=== PATIENT | female | born 1975 | race Caucasian/White ===

== ENCOUNTER 2017-05-01 14:37 | Outpatient (CLI) | payer OTHER ==
--- NOTE | 2017-05-01 17:01 | MRI Report ---
EXAM: LEFT ANKLE/HINDFOOT MRI WITHOUT CONTRAST EXAM DATE: 05/01/2017 03:50 PM. CLINICAL HISTORY: Worsening medial left ankle pain for 2 months after physical therapy. COMPARISON: None. TECHNIQUE: Multiplanar, multisequence T1-weighted and fluid-sensitive sequences of the ankle/hindfoot without contrast. Other: None. FINDINGS: Bones and Articular Cartilage: There is an approximately 8 x 5 mm area of small subcortical cysts, ca rtilage thinning, and slight cortical irregularity at the medial aspect of the talar dome. No discret e osteochondral fragment is seen. Small subcortical cysts at the anteromedial aspect of the posterior talar facet. Marrow edema within the lateral aspect of the calcaneus and plantar aspect of the calca neus. Multiple small subcortical cysts and marrow edema at the proximal medial aspect of the cuboid. Multiple small subcortical cysts at the plantar aspect of the cuboid. An approximately 0.9 x 0.6 x 1. 8 cm os trigonum variant is present. No marrow edema within the os trigonum. Ligaments: The anterior and posterior tibiofibular, anterior and posterior talofibular, and calcaneof ibular ligaments are intact. The deep and superficial deltoid and spring ligaments are intact. Anterior Tendons: The tibialis anterior, extensor hallucis longus, and extensor digitorum longus tend ons are unremarkable. Medial Tendons: Mild focal posterior tibialis tenosynovitis at the level of the distal tibia. Flexor digitorum longus and flexor hallucis longus tendons are unremarkable. Lateral Tendons: Mild peroneal longus and brevis tenosynovitis. No tear. Achilles Tendon: Achilles tendon is unremarkable. There is edema within the pre-Achilles fat pad. Musculature: No edema or fatty atrophy. Other: Small subtalar joint effusion. Small synovial cyst arising from the dorsal aspect of the seymour avicular joint. There is an approximately 3.4 x 0.7 x 0.7 cm ganglion within the sinus tarsi. There i s proximal plantar fasciitis. Small plantar calcaneal enthesophyte. The subcutaneous tissues are unre markable. IMPRESSION: 1. An approximately 8 x 5 mm chronic appearing osteochondral lesion/injury at the medial aspect of th e talar dome. 2. Marrow edema within the calcaneus and cuboid which may represent bone contusion or stress reaction . 3. Mild focal posterior tibialis tenosynovitis at the level of the distal tibia. Mild peroneal longus and brevis tenosynovitis. No tendon tear. 4. Pre-Achilles fat pad edema which may be inflammatory in etiology. No Achilles tendon tear or tendi nosis. 5. Small subtalar joint effusion. 6. Moderate to large size ganglion within the sinus tarsi. 7. Proximal plantar fasciitis. 8. Large os trigonum variant. [facility] MUSCULOSKELETAL RADIOLOGY SECTION Referring Provider Line: [phone] SITE ID: [id number]
== END 2017-05-01 14:38 | disposition home or self-care (01) ==
LOC: DI 14:37
PROVIDERS: ATTEND Physician Assistant
DX: M89.9 Disorder of bone, unspecified (principal); M65.872 Other synovitis and tenosynovitis, left ankle and foot; M25.472 Effusion, left ankle; M67.472 Ganglion, left ankle and foot; M72.2 Plantar fascial fibromatosis